=== PATIENT | male | born 1995 | race African-American/Black ===

== ENCOUNTER 2019-01-21 12:20 | Emergency (ER) | payer BC ==
[2019-01-21] MEDS ORDERED: NA CHLORIDE 0.9% 1,000 ML ONE (13:30)
[2019-01-21 13:34] LABS: Absolute Lymphocytes (CBC) 2.1 K/uL (0.7-4.9); Basophils % 0.5 % (0-1.3); Hematocrit 43.9 % (39.6-49.0); Lymphocytes % 17.1 % (15.3-44.8); MPV 11.1 fL (7.6-11.3); RBC Red Blood Cell Count 5.33 M/uL (4.33-5.43)
[2019-01-21] MEDS ORDERED: INSULIN -REGULAR HUMAN 50 UNIT/0.5 ML ML ONE ×2 (13:39→15:39)
[2019-01-21 13:47] LABS: Albumin 4.5 g/dL (3.4-5.0); Bilirubin Direct 0.2 mg/dL (0-0.2); Bilirubin Total 0.8 mg/dL (0.2-1.0); Protein, Total 8.6 g/dL (6.4-8.2)
[2019-01-21 13:55] LABS: Potassium 4.1 mmol/L (3.5-5.1)
--- NOTE | 2019-01-21 16:26 | ER ---
Nurse's Notes [facility] Name: Tom Garcia Age: 23 yrs Sex: Male : 1995 Arrival Date: 01/21/2019 Time: 12:24 Bed 24 Private MD: None, None Diagnosis: Diabetes mellitus due to underlying condition with hyperglycemia Presentation: 01/21 12:25 Presenting complaint: Patient states: my blood sugar is high- 513, i checked it at work; i checked it today;. Transition of care: patient was not received from another setting of care. Onset of symptoms was January 21, 2019. Risk Assessment: Do you want to hurt yourself or someone else? Patient reports no desire to harm self or others. Initial Sepsis Screen: Does the patient meet any 2 criteria? No. Patient's initial sepsis screen is negative. Does the patient have a suspected source of infection? No. Patient's initial sepsis screen is negative. Care prior to arrival: None. 12:25 Method Of Arrival: Ambulatory 12:25 Acuity: ELISA 3 hj Historical: - Allergies: 12:26 No Known Allergies; hj - PMHx: 12:26 Diabetes - NIDDM; - PSHx: 12:26 None; - Immunization history:: Adult Immunizations up to date. - Social history:: Smoking status: Patient/guardian denies using tobacco. - Ebola Screening: : Patient negative for fever greater than or equal to 101.5 degrees Fahrenheit, and additional compatible Ebola Virus Disease symptoms Patient denies exposure to infectious person Patient denies travel to an Ebola-affected area in the 21 days before illness onset No symptoms or risks identified at this time. Screenin:12 Abuse screen: Denies threats or abuse. Denies injuries from another. Nutritional aj screening: No deficits noted. Tuberculosis screening: No symptoms or risk factors identified. Fall Risk None identified. Assessment: 13:12 General: Appears in no apparent distress. comfortable, Behavior is calm, cooperative, aj appropriate for age. Pain: Denies pain. Neuro: Level of Consciousness is awake, alert, obeys commands, Oriented to person, place, time, situation, Appropriate for age Reports blurred vision. Respiratory: Airway is patent Respiratory effort is even, unlabored, Respiratory pattern is regular, symmetrical. Derm: Skin is intact, is healthy with good turgor, Skin is pink, warm \T\ dry. normal. 15:18 Reassessment: Patient appears in no apparent distress at this time. No changes from aj previously documented assessment. Patient and/or family updated on plan of care and expected duration. Pain level reassessed. Patient is alert, oriented x 3, equal unlabored respirations, skin warm/dry/pink. Patient denies pain at this time. Vital Signs: 12:27 BP 177 / 107; Pulse 99; Resp 18; Temp 97.1(TE); Pulse Ox 98% ; Weight 129.27 kg; Height hj 5 ft. 10 in. (177.80 cm); Pain 0/10; 14:14 BP 130 / 85; Pulse 98; Resp 16; Pulse Ox 100% on R/A; aj 15:17 BP 134 / 94; Pulse 96; Resp 16; Pulse Ox 100% on R/A; aj 16:32 BP 133 / 94; Pulse 89; Resp 16; Pulse Ox 100% on R/A; aj 12:27 Body Mass Index 40.89 (129.27 kg, 177.80 cm) ED Course: 12:24 Patient arrived in ED. dp 12:25 None, None is Private Physician. dp 12:26 Triage completed. hj 12:26 Arm band placed on left wrist. hj 12:59 Chrissy Banks, RN is Primary Nurse. aj 13:03 Cata Frey FNP-C is PHCP. snw 13:03 Hernán León MD is Attending Physician. snw 13:10 Inserted saline lock: 20 gauge in right antecubital area, using aseptic technique. jp3 Blood collected. Patient maintains SpO2 saturation greater than 95% on room air. 13:10 Initial lab(s) drawn, by ut, sent to lab. First set of blood cultures drawn by ut. jp3 13:12 Patient has correct armband on for positive identification. aj 13:30 Second set of blood cultures drawn by ut. jp3 13:33 Blood Culture Adult (2) Sent. jp3 16:45 No provider procedures requiring assistance completed. IV discontinued, intact, aj bleeding controlled, No redness/swelling at site. Pressure dressing applied. Administered Medications: 13:16 Drug: NS 0.9% 1000 ml Route: IV; Rate: 250 ml/hr; Site: right antecubital; aj 16:32 Follow up: Response: No adverse reaction; IV Status: Completed infusion; IV Intake: aj 1000ml 13:23 Drug: Insulin Regular Human 5 units {Co-Signature: malu (Chrsisy Banks RN).} Route: IVP; Site: right upper arm; 16:31 Follow up: Response: Blood sugar is lowered aj 13:24 Drug: Insulin Regular Human 5 units {Co-Signature: malu (Chrissy Banks RN).} Route: Sub-Q; Site: right upper arm; 16:31 Follow up: Response: Blood sugar is lowered aj 15:31 Drug: Insulin Regular Human 10 units {Co-Signature: mg2 (David Campos RN).} Route: aj IVP; Site: right antecubital; 16:31 Follow up: Response: Blood sugar is lowered aj 16:31 Drug: metFORMIN 500 mg Route: PO; aj 16:32 Follow up: Response: Medication administered at discharge. aj 16:31 CANCELLED (Physician Discretion): Insulin Regular Human 10 units IVP once aj Point of Care Testing: Blood Glucose: 12:27 Blood Glucose: 449 mg/dL; hj 14:10 Blood Glucose: 364 mg/dL; aj 15:20 Blood Glucose: 334 mg/dL; aj 16:15 Blood Glucose: 299 mg/dL; jp3 Ranges: Intake: 16:32 IV: 1000ml; Total: 1000ml. aj Outcome: 16:22 Discharge ordered by MD. snw 16:45 Discharged to home ambulatory, with family. aj 16:45 Condition: good 16:45 Discharge instructions given to patient, Instructed on discharge instructions, follow up and referral plans. medication usage, Demonstrated understanding of instructions, follow-up care, medications, Prescriptions given X 1. 16:45 Patient left the ED. aj Signatures: Chrissy Banks, RN Cata Ann, LOOM OPERATOR-C LOOM OPERATOR-Csnw Lisa Golden RN RN Dave Santana RN JANE Ash Barker jp3 Sridhar Clifford RN, RN mg2
--- NOTE | 2019-01-21 16:26 | EDPHYS ---
Physician Documentation [facility] Name: Tom Garcia Age: 23 yrs Sex: Male : 1995 Arrival Date: 01/21/2019 Time: 12:24 Bed 24 Private MD: None, None ED Physician Hernán León HPI: 01/21 16:17 This 23 yrs old Black Male presents to ER via Ambulatory with complaints of High Blood snw Sugar. 16:17 The patient or guardian reports polydipsia, polyuria, that was potentially precipitated snw by weight gain. Onset: The symptoms/episode began/occurred gradually. Associated signs and symptoms: Pertinent positives: polydipsia, polyuria, blurry vision at times. Current symptoms: In the emergency department the patient's symptoms have resolved. It is unknown whether or not the patient has had similar symptoms in the past. sees Dr. Garcia. +family hx of NIDDM. Historical: - Allergies: 12:26 No Known Allergies; hj - PMHx: 12:26 Diabetes - NIDDM; hj - PSHx: 12:26 None; hj - Immunization history:: Adult Immunizations up to date. - Social history:: Smoking status: Patient/guardian denies using tobacco. - Ebola Screening: : Patient negative for fever greater than or equal to 101.5 degrees Fahrenheit, and additional compatible Ebola Virus Disease symptoms Patient denies exposure to infectious person Patient denies travel to an Ebola-affected area in the 21 days before illness onset No symptoms or risks identified at this time. ROS: 16:16 Constitutional: Negative for fever, chills, and weight loss, ENT: Negative for injury, snw pain, and discharge, Neck: Negative for injury, pain, and swelling, Cardiovascular: Negative for chest pain, palpitations, and edema, Respiratory: Negative for shortness of breath, cough, wheezing, and pleuritic chest pain, Abdomen/GI: Negative for abdominal pain, nausea, vomiting, diarrhea, and constipation, Back: Negative for injury and pain, : Negative for injury, bleeding, discharge, and swelling, polyuria MS/Extremity: Negative for injury and deformity, Skin: Negative for injury, rash, and discoloration, Neuro: Negative for headache, weakness, numbness, tingling, and seizure. 16:16 Eyes: Positive for blurry vision. Exam: 16:13 Constitutional: This is a well developed, obese patient who is awake, alert, and in no snw acute distress. Head/Face: Normocephalic, atraumatic. Eyes: Pupils equal round and reactive to light, extra-ocular motions intact. Lids and lashes normal. Conjunctiva and sclera are non-icteric and not injected. Cornea within normal limits. Periorbital areas with no swelling, redness, or edema. ENT: Nares patent. No nasal discharge, no septal abnormalities noted. Tympanic membranes are normal and external auditory canals are clear. Oropharynx with no redness, swelling, or masses, exudates, or evidence of obstruction, uvula midline. Mucous membranes moist. Neck: Trachea midline, no thyromegaly or masses palpated, and no cervical lymphadenopathy. Supple, full range of motion without nuchal rigidity, or vertebral point tenderness. No Meningismus. Chest/axilla: Normal chest wall appearance and motion. Nontender with no deformity. No lesions are appreciated. Cardiovascular: Regular rate and rhythm with a normal S1 and S2. No gallops, murmurs, or rubs. Normal PMI, no JVD. No pulse deficits. Respiratory: Lungs have equal breath sounds bilaterally, clear to auscultation and percussion. No rales, rhonchi or wheezes noted. No increased work of breathing, no retractions or nasal flaring. Abdomen/GI: Soft, non-tender, with normal bowel sounds. No distension or tympany. No guarding or rebound. No evidence of tenderness throughout. Back: No spinal tenderness. No costovertebral tenderness. Full range of motion. Skin: Warm, dry with normal turgor. Normal color with no rashes, no lesions, and no evidence of cellulitis. MS/ Extremity: Pulses equal, no cyanosis. Neurovascular intact. Full, normal range of motion. Neuro: Awake and alert, GCS 15, oriented to person, place, time, and situation. Cranial nerves II-XII grossly intact. Motor strength 5/5 in all extremities. Sensory grossly intact. Cerebellar exam normal. Normal gait. Psych: Awake, alert, with orientation to person, place and time. Behavior, mood, and affect are within normal limits. Vital Signs: 12:27 BP 177 / 107; Pulse 99; Resp 18; Temp 97.1(TE); Pulse Ox 98% ; Weight 129.27 kg; Height hj 5 ft. 10 in. (177.80 cm); Pain 0/10; 14:14 BP 130 / 85; Pulse 98; Resp 16; Pulse Ox 100% on R/A; aj 15:17 BP 134 / 94; Pulse 96; Resp 16; Pulse Ox 100% on R/A; aj 16:32 BP 133 / 94; Pulse 89; Resp 16; Pulse Ox 100% on R/A; aj 12:27 Body Mass Index 40.89 (129.27 kg, 177.80 cm) hj MDM: 13:13 Patient medically screened. snw 16:26 Data reviewed: vital signs, nurses notes. Data interpreted: Pulse oximetry: on room air snw is 100 %. Interpretation: normal. Counseling: I had a detailed discussion with the patient and/or guardian regarding: the historical points, exam findings, and any diagnostic results supporting the discharge/admit diagnosis, the presence of at least one elevated blood pressure reading (>120/80) during this emergency department visit, lab results, the need for outpatient follow up, to return to the emergency department if symptoms worsen or persist or if there are any questions or concerns that arise at home. Special discussion: Based on the history and exam findings, there is no indication for further emergent testing or inpatient evaluation. I discussed with the patient/guardian the need to see the primary care provider for further evaluation of the symptoms. 01/21 12:59 Order name: CBC with Diff; Complete Time: 14:02 01/21 12:59 Order name: BMP; Complete Time: 14:43 01/21 13:03 Order name: LFT's; Complete Time: 14:02 01/21 13:03 Order name: Blood Culture Adult (2) snw 01/21 13:06 Order name: Osmolality, Serum; Complete Time: 15:10 01/21 13:06 Order name: Ketone, Serum; Complete Time: 14:02 01/21 16:24 Order name: Glucose, Ancillary Testing; Complete Time: 16:23 EDMS 01/21 16:24 Order name: Glucose, Ancillary Testing; Complete Time: 16:23 EDMS 01/21 16:24 Order name: Glucose, Ancillary Testing; Complete Time: 16:23 EDMS 01/21 12:31 Order name: Finger Stick; Complete Time: 12:31 hj 01/21 12:59 Order name: IV Saline Lock; Complete Time: 13:09 aj 01/21 16:13 Order name: FSBS; Complete Time: 16:27 snw Administered Medications: 13:16 Drug: NS 0.9% 1000 ml Route: IV; Rate: 250 ml/hr; Site: right antecubital; aj 16:32 Follow up: Response: No adverse reaction; IV Status: Completed infusion; IV Intake: aj 1000ml 13:23 Drug: Insulin Regular Human 5 units {Co-Signature: malu (Chrissy Banks RN).} Route: IVP; iw Site: right upper arm; 16:31 Follow up: Response: Blood sugar is lowered aj 13:24 Drug: Insulin Regular Human 5 units {Co-Signature: malu (Chrissy Banks RN).} Route: Sub-Q; iw Site: right upper arm; 16:31 Follow up: Response: Blood sugar is lowered aj 15:31 Drug: Insulin Regular Human 10 units {Co-Signature: mg2 (David Campos RN).} Route: aj IVP; Site: right antecubital; 16:31 Follow up: Response: Blood sugar is lowered aj 16:31 Drug: metFORMIN 500 mg Route: PO; aj 16:32 Follow up: Response: Medication administered at discharge. aj 16:31 CANCELLED (Physician Discretion): Insulin Regular Human 10 units IVP once aj Point of Care Testing: Blood Glucose: 12:27 Blood Glucose: 449 mg/dL; hj 14:10 Blood Glucose: 364 mg/dL; aj 15:20 Blood Glucose: 334 mg/dL; aj 16:15 Blood Glucose: 299 mg/dL; jp3 Ranges: Critical Glucose Levels:Adult <50 mg/dl or >400 mg/dl <40 mg/dl or >180 mg/dl Disposition: 18:23 Co-signature as Attending Physician, Hernán León MD. rn Disposition: 01/21/19 16:22 Discharged to Home. Impression: Diabetes mellitus due to underlying condition with hyperglycemia. - Condition is Stable. - Discharge Instructions: Diabetes and Sick Day Management, Hyperglycemic Hyperosmolar State, Form - Daily Diabetes Record, Diabetic Nephropathy, Diabetic Neuropathy, Blood Glucose Monitoring, Adult, Diet for Metabolic Syndrome. - Prescriptions for Metformin 500 mg Oral Tablet - take 1 tablet by ORAL route once daily for 7 days Then take 1 tablet with morning meals AND evening meals; 21 tablet. - Work release form, Medication Reconciliation Form, Thank You Letter, Antibiotic Education, Prescription Opioid Use form. - Follow up: Private Physician; When: 1 - 2 days; Reason: Recheck today's complaints, Continuance of care, Re-evaluation by your physician. Signatures: Dispatcher [employer] Chrissy Singh RN RN aj Therrien, Shelly, WILDLIFE REFUGE MANAGER-C WILDLIFE REFUGE MANAGER-Csnw Lisa Golden RN RN iw Nieto, Roman, MD MD rn Joaquin, Henry, RN RN Chrissy Campos RN mg2 Corrections: (The following items were deleted from the chart) 16:31 16:24 Insulin Regular Human 10 units IVP once ordered. alondra toribio 16:45 16:22 01/21/2019 16:22 Discharged to Home. Impression: Diabetes mellitus due to aj underlying condition with hyperglycemia. Condition is Stable. Forms are Medication Reconciliation Form, Thank You Letter, Antibiotic Education, Prescription Opioid Use. Follow up: Private Physician; When: 1 - 2 days; Reason: Recheck today's complaints, Continuance of care, Re-evaluation by your physician. alondra
[2019-01-21] MEDS ORDERED: METFORMIN HCL 500 MG TAB ONE (16:45)
== END 2019-01-21 16:45 | disposition home or self-care (01) ==
LOC: ER 12:20
DX: E11.65 Type 2 diabetes mellitus with hyperglycemia (principal)
CPT/HCPCS: 36415; 80048; 80076; 82010; 82962; 83930; 85025; 87040; 96372; 99284; J7030

== ENCOUNTER 2023-04-24 23:48 | Emergency (ER) | payer OTHER ==
--- OUTSIDE RECORDS SUMMARY | 2023-04-24 23:51 | XMS REPORT | Continuity of Care Document ---
:1995 Author Organization [facility] t Address [address] [facility] [address] [place] [address] Care Team Providers Name Role Phone Harjit Galaviz DO Primary Care Physician Mahesh Rios Attending Clinician Unavailable Consuelo Whittaker Attending Clinician Unavailable HARJIT GALAVIZ Attending Clinician Unavailable [id number] Attending Clinician Unavailable Harjit Galaviz DO Attending Clinician Payers Payer Name Policy Type Policy Number Effective Date Expiration Date S charlee [facility] 2 [id number] 2021 20 00:00:00 [employer] C1 [id number] Common Spiri t [facility] Blue Cross C1 [id number] Common Spiri t [facility] Problems Condition Condition Condition Status Onset Resolution Last Treating Co mments Source Name Details Category Date Date Treatment Clinician Date Class 3 Class 3 Disease Active Dorota severe severe 4-19 Seybold obesity obesity 00:00: due to due to 00 excess excess calories calories with with serious serious comorbidit comorbidit y and body y and body mass index mass index (BMI) of (BMI) of 40.0 to 40.0 to 44.9 in 44.9 in adult adult Obesity Obesity Disease Active Dorota due to due to 10-11 Seybold excess excess 00:00: - calories 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 Hypertensi Hypertensi Disease Active K elsey on on 10-11 Seybold 00:00: - 00 Externa l Well adult Well adult Disease Active K elsey exam exam 10-11 Seybold 00:00: - 00 Externa l [id number] Obstructiv Problem Com mon e sleep Spirit apnea - [facility] [id number] Essential Problem Comm on hypertensi Spirit on - [facility] [id number] Body mass Problem Com mon index Spirit (BMI) of - CHI 39.0-39.9 St in [facility] [id number] Type 2 Problem Common diabetes Spirit mellitus - [facility] with [facility] [id number] Body mass Problem Com mon index Spirit (BMI) of - CHI 40.0-44.9 St in [facility] [id number] Leukocytos Problem Co mmon is, Spirit unspecifie - CHI d type [facility] [id number] Type 2 Problem Common diabetes Spirit mellitus - [facility] without [facility] long-term current use of insulin [id number] Hyperchole Problem Com mon sterolemia Spirit [facility] [id number] Morbid Problem Common obesity Spirit - [facility] [id number] CPAP Problem Common (continuou Spirit s positive - CHI airway St pressure) [facility] dependence [facility] [place] [id number] snf Problem Com mon (current) Spirit use of - [facility]I insulin [facility] Allergies, Adverse Reactions, Alerts Allergy Allergy Status Severity Reaction(s) Onset Inactive Treating Comm ents Source Name Type Date Date Clinician Lisinopr Propensi Active Cough Dorota il ty to 01-27 Seybold adverse 00:00: - reaction 00 Externa s l lisinopr lisinopr Active cough Common il il Spirit - [facility] Social History Social Habit Start Date Stop Date Quantity Comments Source History of Common Spirit - Tobacco Use [facility] Sex Assigned At Common Sp josephine - [facility] Tobacco use and 2021-10-11 2021-10-11 Smokeless tobacco Ke lsey Seybold - exposure 00:00:00 00:00:00 non-user External Smoking Status Start Date Stop Date Source Never smoked tobacco Dorota Seyb old - External Medications Ordered Filled Start Stop Current Ordering Indication Dosage Frequency Signature Comments Components Source Medication Medication Date Date Medication? Clinician (SIG) Name Name Semaglutide 2021-06 Yes [id number] .25mg Inject Dorota (0.25 or 1-28 0.25 mg Seybold 0.5 00:00: into the - mg/dose) 2 00 skin once Exte rna mg/1.5 mL a week l SQ Solution Pen-Injecto r Jardiance 2021-06 Yes [id number] TAKE 1 Ke lsey 10 MG oral 1-21 TABLET BY Seyb old Tablet 00:00: MOUTH - 00 DAILY Externa l Metformin 2021-06 Yes [id number] TAKE 1 Ke lsey HCl 1000 MG 1-21 TABLET(100 Se ybold oral Tablet 00:00: 0 MG) BY - 00 MOUTH IN Externa THE l MORNING AND IN THE EVENING WITH MEALS glipiZIDE 5 Yes [id number] 5mg Take 1 Dorota MG oral 8-08 tablet (5 Seybold Tablet 00:00: mg total) - 00 by mouth Externa in the l morning and 1 tablet (5 mg total) in the evening. Take before meals. glipiZIDE 5 Yes [id number] 5mg Take 1 Dorota MG oral 5-26 tablet (5 Seybold Tablet 00:00: mg total) 00 by mouth daily (before a meal) Liraglutide Yes [id number] .6mg Inject 0.6 Dorota (Victoza) 5-26 mg into Seybold 18 MG/3ML 00:00: the skin subcutaneou 00 daily s Solution Pen-injecto r Metformin Yes [id number] 1000mg Take 1 Dorota HCl 1000 MG 5-03 tablet Seybol d oral Tablet 00:00: (1,000 mg 00 total) by mouth in the morning and 1 tablet (1,000 mg total) in the evening. Take with meals. Empaglifloz Yes [id number] 1{each} Take 1 Dorota in 10 MG 5-03 each by Seybold oral Tablet 00:00: mouth 00 daily Liraglutide 2021- No [id number] .6mg Inject 0.6 Dorota (Victoza) 5-03 05-26 mg into Seybol d 18 MG/3ML 00:00: 00:00 the skin subcutaneou 00 :00 daily s Solution Pen-injecto r hydroCHLORO 2021- No 1{tbl} Take 1 K elsey thiazide 25 4-19 04-19 tablet by Se ybold MG oral 16:12: 00:00 mouth Tablet 45 :00 daily Losartan 2021- No 1{tbl} Take 1 Jenelle ey Potassium 4-19 04-19 tablet by Seyb old 25 MG oral 16:12: 00:00 mouth Tablet 45 :00 daily Rosuvastati 2021- No 1{tbl} Take 1 K elsey n Calcium 4-19 04-19 tablet by Seyb old 10 MG oral 16:12: 00:00 mouth Tablet 45 :00 daily Semaglutide 2021- No 1mg Inject 1 K elsey (OZEMPIC, 1 4-19 04-19 mg into Seyb old MG/DOSE, 16:12: 00:00 the skin SC) 45 :00 once a week Rosuvastati Yes [id number] 10mg Take 1 Dorota n Calcium 4-19 tablet (10 Seyb old 10 MG oral 00:00: mg total) Tablet 00 by mouth daily Losartan Yes [id number] 25mg Take 1 Hossein sey Potassium 4-19 tablet (25 Seyb old 25 MG oral 00:00: mg total) Tablet 00 by mouth daily hydroCHLORO Yes [id number] 25mg Take 1 Dorota thiazide 25 4-19 tablet (25 Se ybold MG oral 00:00: mg total) Tablet 00 by mouth daily Rosuvastati Yes [id number] 10mg Take 1 Dorota n Calcium 4-19 tablet (10 Seyb old 10 MG oral 00:00: mg total) - Tablet 00 by mouth Externa daily l Losartan Yes [id number] 25mg Take 1 Hossein sey Potassium 4-19 tablet (25 Seyb old 25 MG oral 00:00: mg total) - Tablet 00 by mouth Externa daily l hydroCHLORO Yes [id number] 25mg Take 1 Dorota thiazide 25 4-19 tablet (25 Se ybold MG oral 00:00: mg total) - Tablet 00 by mouth Externa daily l Empaglifloz Yes [id number] 1{tbl} Take 1 Dorota in-metFORMI 4-19 tablet by Sewilly bold N HCl ER 00:00: mouth (Synjardy 00 daily XR) (with 12.51000 breakfast) MG oral TABLET SR 24 HR OZEMPIC ( Yes [id number] 1mg Inject 1 Dorota mg/dose) 2 4-19 mg into Seybol d mg/1.5 mL 00:00: the skin SQ Solution 00 once a Pen-Injecto week r Rosuvastati Yes [id number] 10mg Take 1 Dorota n Calcium 4-19 tablet (10 Seyb old 10 MG oral 00:00: mg total) Tablet 00 by mouth daily Losartan Yes [id number] 25mg Take 1 Hossein sey Potassium 4-19 tablet (25 Seyb old 25 MG oral 00:00: mg total) Tablet 00 by mouth daily hydroCHLORO Yes [id number] 25mg Take 1 Dorota thiazide 25 4-19 tablet (25 Se ybold MG oral 00:00: mg total) Tablet 00 by mouth daily Synjardy XR 2021- No 1{tbl} Take 1 K elsey .07-17-19 tablet by Seyb old MG oral 00:00: 00:00 mouth TABLET SR 00 :00 daily 24 HR (with breakfast) Synjardy XR Synjardy XR 2021- No 1{table QD Synjardy 12.5.07-13 t_with_ XR MG MG 00:00: 00:00 breakfa 12.5 00 :00 st} MG Synjardy XR Synjardy XR 2021- No 1{table QD Synjardy 12.5.507-13 t_with_ XR MG MG 00:00: 00:00 breakfa 12.5-1000 00 :00 st} MG Ozempic (1 Ozempic (2020- No Ozempic (1 MG/DOSE) 2 MG/DOSE) 2 3-30 07-28 MG/DOSE) 2 MG/1.5ML MG/1.5ML 00:00: 00:00 MG/1.5ML 00 :00 Ozempic Ozempic 2020- No Consuelo 0.5 units Common (0.25 or (0.25 or 4-27 07-16 Millender S pirit 0.5 0.5 00:00: 00:00 - CHI MG/DOSE) MG/DOSE) 00 :00 [facility] Ozempic Ozempic 2018-06- No Conseulo as Commo n (0.25 or (0.25 or 2-26 09-13 Millender directed Spirit 0.5 0.5 00:00: 00:00 - CHI MG/DOSE) MG/DOSE) 00 :00 [facility] Crestor Crestor Yes Consuelo 1 tablet Comm on Millender in evening Spir it [facility] Hydrochloro Hydrochloro Yes Consuelo 1 tablet Common thiazide thiazide Millender in the [facility] morning [facility] Losartan Losartan Yes Consuelo 1 tablet Co mmon Potassium Potassium Millender [facility] Metformin Metformin Yes Consuelo 1 tablet Common HCl HCl Millender with a [facility] meal [facility] Ozempic (1 Ozempic (1 No Ozempic (1 MG/DOSE) 2 MG/DOSE) 2 MG/DOSE) 2 MG/1.5ML MG/1.5ML MG/1.5ML Losartan Losartan No 1{table QD Losartan Potassium Potassium t} Potassium 25 mg 25 mg 25 mg metFORMIN metFORMIN No 1{table BID metFORMIN HCl 500 MG HCl 500 MG t_with_ HCl 500 MG a_meal} Crestor 10 Crestor 10 No Crestor 10 MG MG MG Ozempic (1 Ozempic (1 No Ozempic (1 MG/DOSE) 4 MG/DOSE) 4 MG/DOSE) 4 MG/3ML MG/3ML MG/3ML hydroCHLORO hydroCHLORO No 1{table QD hydroCHLOR thiazide 25 thiazide 25 t_in_th Othiazide MG MG e_morni 25 MG ng} Crestor 10 Crestor 10 No Crestor 10 MG MG MG hydroCHLORO hydroCHLORO No 1{table QD hydroCHLOR thiazide 25 thiazide 25 t_in_th Othiazide MG MG e_morni 25 MG ng} Losartan Losartan No 1{table QD Losartan Potassium Potassium t} Potassium 25 mg 25 mg 25 mg Ozempic (1 Ozempic (1 No Ozempic (1 MG/DOSE) 2 MG/DOSE) 2 MG/DOSE) 2 MG/1.5ML MG/1.5ML MG/1.5ML Ozempic (1 Ozempic (1 No Ozempic (1 MG/DOSE) 4 MG/DOSE) 4 MG/DOSE) 4 MG/3ML MG/3ML MG/3ML metFORMIN metFORMIN No 1{table BID metFORMIN HCl 500 MG HCl 500 MG t_with_ HCl 500 MG a_meal} Crestor 10 Crestor 10 No Crestor 10 MG MG MG hydroCHLORO hydroCHLORO No 1{table QD hydroCHLOR thiazide 25 thiazide 25 t_in_th Othiazide MG MG e_morni 25 MG ng} Losartan Losartan No 1{table QD Losartan Potassium Potassium t} Potassium 25 mg 25 mg 25 mg Ozempic (1 Ozempic (1 No Ozempic (1 MG/DOSE) 2 MG/DOSE) 2 MG/DOSE) 2 MG/1.5ML MG/1.5ML MG/1.5ML Ozempic (1 Ozempic (1 No Ozempic (1 MG/DOSE) 4 MG/DOSE) 4 MG/DOSE) 4 MG/3ML MG/3ML MG/3ML metFORMIN metFORMIN No 1{table BID metFORMIN HCl 500 MG HCl 500 MG t_with_ HCl 500 MG a_meal} metFORMIN metFORMIN No 1{table BID metFORMIN HCl 500 MG HCl 500 MG t_with_ HCl 500 MG a_meal} hydroCHLORO hydroCHLORO No 1{table QD hydroCHLOR thiazide 25 thiazide 25 t_in_th Othiazide MG MG e_morni 25 MG ng} Losartan Losartan No 1{table QD Losartan Potassium Potassium t} Potassium 25 mg 25 mg 25 mg Crestor 10 Crestor 10 No Crestor 10 MG MG MG Losartan Losartan No 1{table QD Losartan Potassium Potassium t} Potassium 25 mg 25 mg 25 mg Ozempic (1 Ozempic (1 No Ozempic (1 MG/DOSE) 2 MG/DOSE) 2 MG/DOSE) 2 MG/1.5ML MG/1.5ML MG/1.5ML Crestor 10 Crestor 10 No Crestor 10 MG MG MG hydroCHLORO hydroCHLORO No 1{table QD hydroCHLOR thiazide 25 thiazide 25 t_in_th Othiazide MG MG e_morni 25 MG ng} metFORMIN metFORMIN No 1{table BID metFORMIN HCl 500 MG HCl 500 MG t_with_ HCl 500 MG a_meal} Crestor 10 Crestor 10 No QD Crestor 10 MG MG MG metFORMIN metFORMIN No 1{table BID metFORMIN HCl 500 MG HCl 500 MG t_with_ HCl 500 MG a_meal} hydroCHLORO hydroCHLORO No 1{table QD hydroCHLOR thiazide 25 thiazide 25 t_in_th Othiazide MG MG e_morni 25 MG ng} Ozempic (1 Ozempic (1 No Ozempic (1 MG/DOSE) 2 MG/DOSE) 2 MG/DOSE) 2 MG/1.5ML MG/1.5ML MG/1.5ML Losartan Losartan No 1{table QD Losartan Potassium Potassium t} Potassium 25 MG 25 MG 25 MG Ozempic (1 Ozempic (1 No Ozempic (1 MG/DOSE) 4 MG/DOSE) 4 MG/DOSE) 4 MG/3ML MG/3ML MG/3ML Ozempic (1 Ozempic (1 No Ozempic (1 MG/DOSE) 2 MG/DOSE) 2 MG/DOSE) 2 MG/1.5ML MG/1.5ML MG/1.5ML Crestor 10 Crestor 10 No Crestor 10 MG MG MG metFORMIN metFORMIN No 1{table BID metFORMIN HCl 500 MG HCl 500 MG t_with_ HCl 500 MG a_meal} Losartan Losartan No 1{table QD Losartan Potassium Potassium t} Potassium 25 mg 25 mg 25 mg hydroCHLORO hydroCHLORO No 1{table QD hydroCHLOR thiazide 25 thiazide 25 t_in_th Othiazide MG MG e_morni 25 MG ng} Vital Signs Vital Name Observation Time Observation Value Comments Source Systolic blood 2022-05-22 14:21:00 118 mm[Hg] Dorota Panchalybold - pressure External Diastolic blood 2022-05-22 14:21:00 82 mm[Hg] Kelse y Seybold - pressure External Heart rate 2022-05-22 14:21:00 114 /min Dorota Miranda eybold - External Body temperature 2022-05-22 14:21:00 35.56 Karin Jenelle ey Seybold - External Respiratory rate 2022-05-22 14:21:00 16 /min Jenelle osman Seybold - External Body height 2022-05-22 14:21:00 177.8 cm Dorota Miranda eybold - External Body weight 2022-05-22 14:21:00 130.636 kg Dorota Miranda eybold - External BMI 2022-05-22 14:21:00 41.32 kg/m2 Dorota Miranda eybold - External Systolic blood 2021-10-11 20:28:00 136 mm[Hg] Dorota Seybold pressure Diastolic blood 2021-10-11 20:28:00 80 mm[Hg] Kelse y Seybold pressure Heart rate 2021-10-11 20:28:00 97 /min Dorota Miranda eybold Body temperature 2021-10-11 20:28:00 36.61 Karin Jenelle ey Seybold Respiratory rate 2021-10-11 20:28:00 16 /min Jenelle osman Seybold Body height 2021-10-11 20:28:00 177.8 cm Dorota Miranda eybold Body weight 2021-10-11 20:28:00 130.182 kg Dorota Miranda eybold BMI 2021-10-11 20:28:00 41.18 kg/m2 Dorota osmanbold height 2021-07-26 09:40:00 69.5 [in_i] [facility] weight 2021-07-26 09:40:00 289.8 [lb_av] Common Spirit [facility] temperature 2021-07-26 09:40:00 97.2 [degF] Common [facility] bmi 2021-07-26 09:40:00 42.18 kg/m2 [facility] oximetry 2021-07-26 09:40:00 98 % [facility] respiratory rate 2021-07-26 09:40:00 16 /min Comm on [facility] blood pressure 2021-07-26 09:40:00 132 mm[Hg] Common [facility] - systolic [facility] blood pressure 2021-07-26 09:40:00 76 mm[Hg] Common [facility] - diastolic [facility] blood pressure 2021-07-13 07:50:00 124 mm[Hg] Common Spirit - systolic [facility] blood pressure 2021-07-13 07:50:00 83 mm[Hg] Common [facility] - diastolic [facility] height 2021-07-13 07:50:00 69.5 [in_i] [facility] weight 2021-07-13 07:50:00 285 [lb_av] [facility] temperature 2021-07-13 07:50:00 98.2 [degF] [facility] bmi 2021-07-13 07:50:00 41.48 kg/m2 [facility] height 2021-02-01 08:00:00 69.5 [in_i] [facility] weight 2021-02-01 08:00:00 290 [lb_av] [facility] temperature 2021-02-01 08:00:00 97.7 [degF] [facility] bmi 2021-02-01 08:00:00 42.21 kg/m2 [facility] blood pressure 2021-02-01 08:00:00 118 mm[Hg] Common [facility] - systolic [facility] blood pressure 2021-02-01 08:00:00 88 mm[Hg] Common [facility] diastolic [facility] Procedures This patient has no known procedures. Encounters Start End Encounter Admission Attending Care Care Encounter Source Date/Time Date/Time Type Type Clinicians Facility Department ID 2021-07-[address] [facility] [id number] Common 14:20:40 Mahesh [id number] [facility] 2021-07-20 Outpatient Rios, STLMLC STLMLC [id number] Common 13:35:59 Mahesh [id number] [facility] 2021-07-20 Outpatient Rios, STLMLC STLMLC [id number] Common 13:32:26 Mahesh [id number] [facility] 2021-07-20 Outpatient Rios, STLMLC STLMLC [id number] Common 13:28:23 Mahesh [id number] [facility] 2021-07-20 Outpatient Rios, STLMLC STLMLC [id number] Common 12:47:44 Mahesh [id number] [facility] 2021-07-20 Outpatient Rios, STLMLC STLMLC [id number] Common 12:45:24 Mahesh [id number] [facility] 2021-07-20 Outpatient Rios, STLMLC STLMLC [id number] Common 12:42:40 Mahesh [id number] [facility] 2021-07-20 Outpatient Rios, STLMLC STLMLC [id number] Common 12:36:48 Mahesh [id number] [facility] 2021-07-20 Outpatient Rios, STLMLC STLMLC [id number] Common 12:26:08 Mahesh [id number] [facility] 2021-07-20 Outpatient Rios, STLMLC STLMLC [id number] Common 12:22:11 Mahesh [id number] [facility] 2021-07-20 Outpatient STLMLC STLMLC [id number] Common 12:21:22 [id number] [facility] 2021-07-20 Outpatient STLMLC STLMLC [id number] Common 12:15:23 [id number] [facility] 2021-07-20 Outpatient STLMLC STLMLC [id number] Common 12:09:52 [id number] [facility] 2021-07-20 Outpatient Millender, STLMLC STLMLC [id number] Common 11:51:45 Consuelo [id number] [facility] 2021-07-20 Outpatient Millender, STLMLC STLMLC [id number] 11:28:45 Consuelo [id number] [facility] 2021-07-20 Outpatient Panfilo, VERONICA [facility] [id number] Common 10:57:24 Consuelo [id number] [facility] 2022-11-28 2022-11-28 Outpatient PREZAS, DOROTA BENSON [id number] Dorota 00:00:00 00:00:00 HARJIT Seybol d 2022-11-22 2022-11-22 Outpatient PREZAS, DOROTA BENSON [id number] Dorota 00:00:00 00:00:00 HARJIT Seybol d 2022-08-18 2022-08-18 Outpatient PREZAS, DOROTA BENSON [id number] Dorota 08:15:00 08:15:00 HARJIT Seybol d 2022-08-04 2022-08-04 Outpatient PREZAS, DOROTA BENSON [id number] Dorota 00:00:00 00:00:00 HARJIT Seybol d 2022-08-04 2022-08-04 Outpatient PREZAS, DOROTA BENSON [id number] Dorota 00:00:00 00:00:00 HARJIT Seybol d 2022-06-05 2022-06-05 Outpatient LAB90 DOROTA BENSON [id number] Dorota 08:45:00 08:45:00 Seybol d 2022-06-05 2022-06-05 Outpatient PREZAS, DOROTA BENSON [id number] Dorota 00:00:00 00:00:00 HARJIT Seybol d 2022-05-31 2022-05-31 Outpatient PREZAS, DOROTA BENSON [id number] Dorota 00:00:00 00:00:00 HARJIT Seybol d 2022-05-22 2022-05-22 Outpatient LAB90 DOROTA BENSON [id number] Dorota 09:10:00 09:10:00 Seybol d 2022-05-22 2022-05-22 Outpatient PREZAS, DOROTA BENSON [id number] Dorota 08:00:00 08:00:00 HARJIT Seybol d 2022-05-04 2022-05-04 Outpatient PREZAS, DOROTA BENSON [id number] Dorota 09:15:00 09:15:00 HARJIT Seybol d 2022-04-20 2022-04-20 Outpatient PREZAS, DOROTA BENSON [id number] Dorota 00:00:00 00:00:00 HARJIT Seybol d 2022-02-13 2022-02-13 Outpatient PREZAS, DOROTA BENSON [id number] Dorota 00:00:00 00:00:00 HARJIT Seybol d 2022-01-30 2022-01-30 Outpatient PREZAS, DOROTA BESNON [id number] Dorota 00:00:00 00:00:00 HARJIT Seybol d 2022-01-27 2022-01-27 Outpatient LAB90 DOROTA BENSON [id number] Dorota 08:30:00 08:30:00 Seybol d 2022-01-27 2022-01-27 Office Tim Galaviz [id number] Dorota 08:00:00 08:15:00 Visit Harjit Saab [id number] Se ybold [id number] 2022-01-23 2022-01-23 Outpatient PREZARuben, DOROTA BENSON [id number] Dorota 00:00:00 00:00:00 HARJIT Seybol d 2021-11-17 2021-11-17 Telemedici REBECCATim Miranda [id number] Dorota 09:00:00 09:00:00 ne HARJIT Saab [id number] Se ybold [id number] 2021-11-17 2021-11-17 Outpatient PREZASDOROTA [id number] Dorota 00:00:00 00:00:00 HARJIT Seybol d 2021-11-16 2021-11-16 Outpatient PREZASDOROTA [id number] Dorota 00:00:00 00:00:00 HARJIT Seybol d 2021-11-04 2021-11-04 Outpatient PREZASDOROTA [id number] Dorota 00:00:00 00:00:00 HARJIT Seybol d 2021-11-02 2021-11-02 Outpatient PREZAS, DOROTA BENSON [id number] Dorota 00:00:00 00:00:00 HARJIT Seybol d 2021-10-27 2021-10-27 Outpatient PREZAS, DOROTA BENSON [id number] Dorota 00:00:00 00:00:00 HARJIT Seybol d 2021-10-25 2021-10-25 Outpatient PREZAS, DOROTA BENSON [id number] Dorota 00:00:00 00:00:00 HARJIT Seybol d 2021-10-13 2021-10-13 Outpatient LAB90 DOROTA BENSON [id number] Dorota 08:15:00 08:15:00 Seybol d 2021-10-12 2021-10-12 Outpatient PREZAS DOROTA BENSON [id number] Dorota 00:00:00 00:00:00 HARJIT Seybol d 2021-10-12 2021-10-12 Outpatient PREZAS, DOROTA BENSON [id number] Dorota 00:00:00 00:00:00 HARJIT Seybol d 2021-10-11 2021-10-11 Office Tim Galaviz [id number] Dorota 15:15:00 15:45:00 Visit Harjit Kaiser [id number] Se etienne [id number] 2021-10-10 2021-10-10 (TEL) STLMLC STLMLC [id number] Co mmon 00:00:00 00:00:00 [facility] 2021-07-26 2021-07-26 OFFICE STLMLC STLMLC [id number] Co mmon 00:00:00 00:00:00 VISIT EST Spir it PT LEVEL 3 - [facility] 2021-07-25 2021-07-25 (TEL) STLMLC STLMLC [id number] Co mmon 00:00:00 00:00:00 [facility] 2021-07-13 2021-07-13 OFFICE STLMLC STLMLC [id number] Co mmon 00:00:00 00:00:00 VISIT [facility] ESTAB PT - CHI LEVEL 4 [facility] 2021-05-27 2021-05-27 (TEL) STLMLC STLMLC [id number] Co mmon 00:00:00 00:00:00 [facility] 2021-02-01 2021-02-01 OFFICE STLMLC STLMLC [id number] Co mmon 00:00:00 00:00:00 VISIT [facility] PT - CHI LEVEL 4 [facility] 2020-12-09 2020-12-09 (TEL) STLMLC STLMLC [id number] Co mmon 00:00:00 00:00:00 [facility] 2020-09-23 2020-09-23 Outpatient STLMLC STLMLC [id number] Common 00:00:00 00:00:00 [facility] 2020-09-21 2020-09-21 Outpatient STLMLC STLMLC [id number] Common 00:00:00 00:00:00 [facility] 2020-07-12 2020-07-12 Outpatient STLMLC STLMLC [id number] Common 00:00:00 00:00:00 [facility] 2019-12-18 2019-12-18 [facility] [id number] Common 09:40:00 09:40:00 [facility] [address] [facility] 2019-10-20 2019-10-20 [facility] [id number] Common 14:22:00 14:22:00 [facility] [address] [facility] 2019-10-20 2019-10-20 [facility] [id number] Common 11:34:00 11:34:00 [facility] [address] [facility] 2019-08-08 2019-08-08 [facility] [id number] Common 14:00:00 14:00:00 [facility] [address] [facility] 2019-07-25 2019-07-25 Out[facility] [id number] Common 08:44:00 08:44:[address] [facility] 2019-04-10 2019-04-10 Outpatient [facility] [id number] Common 09:31:00 09:31:[address] [facility] 2019-04-04 2019-04-04 Out[facility] [id number] Common 10:30:00 10:30:[address] [facility] 2019-03-04 2019-03-04 [facility] [id number] Common 14:15:00 14:15:[address] [facility] 2019-03-04 2019-03-04 [facility] [id number] Common 09:15:00 09:15:00 t [facility] Road Spir it Road [facility] 2019-03-04 2019-03-04 Out[facility] [id number] Common 08:20:00 08:20:[address] [facility] 2019-02-20 2019-02-20 [facility] [id number] Common 13:15:00 13:15:[address] [facility] Results This patient has no known results.
[2023-04-25 00:33] LABS: Absolute Lymphocytes (CBC) 3.1 K/uL (0.7-4.9); Hematocrit 44.9 % (39.6-49.0); Lymphocytes % 30.6 % (15.3-44.8); MCV 83.7 fL (80-100); MPV 10.1 fL (7.6-11.3); Platelets 230 thou/uL (152-406); RBC Red Blood Cell Count 5.36 M/uL (4.33-5.43)
[2023-04-25] MEDS ORDERED: INSULIN REGULAR (HUMAN) 100 UNIT/ML ONE ×2 (00:46→02:00)
[2023-04-25] MEDS ORDERED: NA CHLORIDE 0.9% 1,000 ML ONE ×3 (00:46→03:10)
[2023-04-25 01:07] LABS: Specific Gravity 1.029 (1.005-1.030); Urine Bilirubin NEGATIVE (Negative); Urine Blood Negative (Negative); Urine Clarity Clear (Clear); Urine Color Colorless (Yellow); Urine Glucose 4+ (Over) (Negative); Urine Protein NEGATIVE (Negative); Urine Urobilinogen Normal (Normal); Urine pH 5.5 (5.0-7.0)
[2023-04-25 01:11] LABS: Albumin 3.9 g/dL (3.4-5.0); Bilirubin Total 0.7 mg/dL (0.2-1.0); Protein, Total 7.7 g/dL (6.4-8.2)
[2023-04-25 01:13] LABS: Potassium 3.7 mEq/L (3.5-5.1)
[2023-04-25 01:27] LABS: BETA HYDROXYBUTYRATE 0.14 mmol/L (0.02-0.27)
[2023-04-25] MEDS ORDERED: POTASSIUM 25 MEQ EFFERV TAB ONE (02:05)
--- NOTE | 2023-04-25 03:16 | ER ---
Nurse's Notes [facility] Name: Tom Garcia Age: 27 yrs Sex: Male : 1995 Arrival Date: 04/24/2023 Time: 23:48 Bed 5 Private MD: Diagnosis: Diabetes mellitus due to underlying condition with hyperglycemia Presentation: 04/24 23:53 Chief complaint: Patient states: HIGH BLOOD SUGAR. TYPE 2 DM . TOOK BS AT 11P AND IT jj7 JUST SAID IT WAS HIGH READING ON MACHINE. Coronavirus screen: At this time, the client does not indicate any symptoms associated with coronavirus-19. Ebola Screen: No symptoms or risks identified at this time. Initial Sepsis Screen: Does the patient meet any 2 criteria? No. Patient's initial sepsis screen is negative. Does the patient have a suspected source of infection? No. Patient's initial sepsis screen is negative. Risk Assessment: Do you want to hurt yourself or someone else? Patient reports no desire to harm self or others. Onset of symptoms was April 24, 2023. 23:53 Method Of Arrival: Ambulatory [facility] 23:53 Acuity: ELISA 3 jj7 Triage Assessment: 23:56 General: Appears in no apparent distress. comfortable, Behavior is calm, cooperative, jj7 appropriate for age, anxious. Pain: Denies pain. Historical: - Allergies: 23:56 No Known Allergies; jj7 - PMHx: 23:56 Diabetes - NIDDM; Hypertensive disorder; jj7 - PSHx: 23:56 None; jj7 - Immunization history:: Adult Immunizations up to date. - Social history:: Smoking status: Patient denies any tobacco usage or history of. Patient uses alcohol, but reports only rare drinking. Patient/guardian denies using street drugs. Screenin/01 00:01 [facility] ED Fall Risk Assessment (Adult) History of falling in the last 3 months, jj7 including since admission No falls in past 3 months (0 pts) Confusion or Disorientation No (0 pts) Intoxicated or Sedated No (0 pts) Impaired Gait No (0 pts) Mobility Assist Device Used No (0 pt) Altered Elimination No (0 pt) Score/Fall Risk Level 0 - 2 = Low Risk Oriented to surroundings, Maintained a safe environment. Abuse screen: Denies threats or abuse. Nutritional screening: No deficits noted. Tuberculosis screening: No symptoms or risk factors identified. Assessment: 00:01 Reassessment: SEE TRIAGE ASSESSMENT. [facility] 01:00 Reassessment: Patient appears in no apparent distress at this time. Patient and/or pf1 family updated on plan of care and expected duration. Pain level reassessed. Patient is alert, oriented x 3, equal unlabored respirations, skin warm/dry/pink. Patient states symptoms have improved. 02:02 Reassessment: Patient appears in no apparent distress at this time. Patient and/or pf1 family updated on plan of care and expected duration. Pain level reassessed. Patient is alert, oriented x 3, equal unlabored respirations, skin warm/dry/pink. Patient states symptoms have improved. 03:00 Reassessment: Patient appears in no apparent distress at this time. Patient and/or pf1 family updated on plan of care and expected duration. Pain level reassessed. Patient is alert, oriented x 3, equal unlabored respirations, skin warm/dry/pink. Patient denies pain at this time. Patient states feeling better. Patient states symptoms have improved. 04:02 Reassessment: Patient appears in no apparent distress at this time. Patient and/or pf1 family updated on plan of care and expected duration. Pain level reassessed. Patient is alert, oriented x 3, equal unlabored respirations, skin warm/dry/pink. Patient states feeling better. Patient states symptoms have improved. Vital Signs: 04/24 23:53 BP 173 / 123; Pulse 9; Resp 18; Temp 98.7; Pulse Ox 100% ; Weight 124.74 kg; Height 5 [facility] ft. 10 in. ; Pain 0/10; 04/25 01:00 BP 151 / 103; Pulse 107; Resp 18; Pulse Ox 99% on R/A; Pain 0/10; pf1 02:00 BP 147 / 98; Pulse 103; Resp 17 S; Pulse Ox 99% on R/A; ha1 03:00 BP 150 / 100; Pulse 101; Resp 18 S; Pulse Ox 99% on R/A; ha1 04:01 BP 144 / 82; Pulse 95; Resp 18 S; Pulse Ox 100% on R/A; ha1 04/24 23:53 Body Mass Index 39.46 (124.74 kg, 177.8 cm) [facility] 04/24 23:53 Pain Scale: Adult jj7 04/25 01:00 Pain Scale: Adult pf1 ED Course: 04/24 23:50 Patient arrived in ED. jj6 23:56 Triage completed. jj7 23:56 Arm band placed on right wrist. jj7 23:58 Dequan Kaur PA is PHCP. cp 23:59 Andrew Mata MD is Attending Physician. cp 04/25 00:00 Patient has correct armband on for positive identification. Bed in low position. Call pf1 light in reach. 00:10 Inserted saline lock: 20 gauge in left antecubital area, using aseptic technique. Blood ha1 collected. 00:23 CBC with Diff Sent. ha1 00:23 CMP Sent. ha1 00:24 Lipase Sent. ha1 04:03 No provider procedures requiring assistance completed. IV discontinued, intact, pf1 bleeding controlled, No redness/swelling at site. Pressure dressing applied. 04:04 Provided Education on: follow up education on DM, high blood pressure and keeping a pf1 blood pressure log.. Administered Medications: 00:38 Drug: NS 0.9% IV 1000 ml IV at 1 bolus Per protocol; 1000 mL bolus Route: IV; Rate: 1 ha1 bolus; Site: left antecubital; 01:24 Follow up: Response: No adverse reaction; Marked relief of symptoms pf1 01:30 Follow up: Response: No adverse reaction; Marked relief of symptoms; IV Status: pf1 Completed infusion; IV Intake: 1000ml 00:38 Drug: Insulin Regular Human IVP 10 units IVP once {Co-Signature: pf1 (Tita Catherine RN).} Route: IVP; Site: left antecubital; 01:30 Follow up: Response: No adverse reaction; Marked relief of symptoms; Blood sugar is pf1 lowered 00:51 Not Given (Physician Discretion): insulin regular human10 units Sub-Q once ha1 01:30 Drug: NS 0.9% IV 1000 ml IV at 1 bolus Per protocol; 1000 mL bolus Route: IV; Rate: 1 pf1 bolus; Site: left antecubital; 02:30 Follow up: Response: No adverse reaction; Marked relief of symptoms; IV Status: pf1 Completed infusion; IV Intake: 1000ml 02:00 Drug: Insulin Regular Human Sub-Q 10 units Sub-Q once {Co-Signature: pf1 (layne Catherine RN).} Route: Sub-Q; Site: abdomen; 03:00 Follow up: Response: No adverse reaction; Marked relief of symptoms; Blood sugar is pf1 lowered 02:01 Drug: Potassium PO Effervescent Tablet 50 mEq PO once; dissolve in 4 ounces of water or ha1 juice Route: PO; 02:14 Follow up: Response: No adverse reaction pf1 03:10 Drug: NS 0.9% IV 1000 ml IV at 1 bolus Per protocol; 1000 mL bolus Route: IV; Rate: 1 pf1 bolus; Site: left antecubital; 04:00 Follow up: Response: No adverse reaction; Marked relief of symptoms; IV Status: pf1 Completed infusion; IV Intake: 1000ml Medication: 00:01 VIS not applicable for this client. jj7 Point of Care Testing: Blood Glucose: 04/24 23:56 Blood Glucose: High (>450 mg/dL); jj7 Ranges: Intake: 04/25 01:30 IV: 1000ml; Total: 1000ml. pf1 02:30 IV: 1000ml; Total: 2000ml. pf1 04:00 IV: 1000ml; Total: 3000ml. pf1 Outcome: 03:16 Discharge ordered by MD. cp 04:04 Discharged to home ambulatory, pf1 04:04 Condition: improved 04:04 Discharge instructions given to patient, Instructed on discharge instructions, follow up and referral plans. Demonstrated understanding of instructions, follow-up care, 04:05 Patient left the ED. pf1 Signatures: Dequan Kaur PA PA cp Jeffries, Jennifer jj6 Liliana Apple RN RN ha1 Lorenzo Espinosa RN RN jj7 Tita Catherine RN RN pf1 Tita Catherine RN pf1 Corrections: (The following items were deleted from the chart) 02:29 02:27 BP 147 / 98; Pulse 103bpm; Resp 17bpm; Spontaneous; Pulse Ox 99% RA; ha1 ha1
--- NOTE | 2023-04-25 03:16 | EDPHYS ---
Physician Documentation [facility] Name: Tom Garcia Age: 27 yrs Sex: Male : 1995 Arrival Date: 04/24/2023 Time: 23:48 Bed 5 Private MD: ED Physician Andrew Mata HPI: 04/25 00:10 This 27 yrs old Black Male presents to ER via Ambulatory with complaints of High Blood cp Sugar. 00:10 The patient or guardian reports hyperglycemia, that was potentially precipitated by cp forgetting medications. Onset: The symptoms/episode began/occurred today. Associated signs and symptoms: Pertinent negatives: vomiting, fever, chest pain, abdominal pain. Current symptoms: In the emergency department the patient's symptoms are unchanged from the initial presentation, despite home interventions. took shot of Ozempic medication this evening. Historical: - Allergies: 04/24 23:56 No Known Allergies; jj7 - PMHx: 23:56 Diabetes - NIDDM; Hypertensive disorder; jj7 - PSHx: 23:56 None; jj7 - Immunization history:: Adult Immunizations up to date. - Social history:: Smoking status: Patient denies any tobacco usage or history of. Patient uses alcohol, but reports only rare drinking. Patient/guardian denies using street drugs. ROS: 04/25 00:15 Constitutional: Negative for body aches, chills, fever, cp 00:15 Eyes: Negative for injury, pain, redness, and discharge, cp 00:15 ENT: Negative for drainage from ear(s), ear pain, sore throat, difficulty swallowing, difficulty handling secretions, 00:15 Cardiovascular: Negative for chest pain, edema, 00:15 Respiratory: Negative for cough, shortness of breath, wheezing, 00:15 Abdomen/GI: Negative for abdominal pain, vomiting, diarrhea, constipation, 00:15 : Negative for urinary symptoms, hematuria, 00:15 Skin: Negative for cellulitis, rash, 00:15 Neuro: Negative for altered mental status, dizziness, headache, numbness, weakness, 00:15 All other systems are negative, Exam: 00:20 Constitutional: The patient appears in no acute distress, alert, awake, cp non-diaphoretic, non-toxic, well developed, well nourished, obese, 00:20 Head/Face: Normocephalic, atraumatic. cp 00:20 Eyes: Periorbital structures: appear normal, Conjunctiva: normal, no exudate, no injection, Sclera: no appreciated abnormality, Lids and lashes: appear normal, bilaterally, 00:20 ENT: External ear(s): are unremarkable, Nose: is normal, Mouth: Lips: moist, Oral mucosa: pink and intact, moist, Posterior pharynx: Airway: no evidence of obstruction, patent, swelling, is not appreciated, erythema, is not appreciated, 00:20 Neck: ROM/movement: is normal, is supple, without pain, no range of motions limitations, 00:20 Chest/axilla: Inspection: normal, Palpation: is normal, no crepitus, no tenderness, 00:20 Cardiovascular: Rate: tachycardic, Rhythm: regular, Edema: is not appreciated, JVD: is not appreciated, 00:20 Respiratory: the patient does not display signs of respiratory distress, Respirations: normal, no use of accessory muscles, no retractions, labored breathing, is not present, Breath sounds: are clear throughout, no decreased breath sounds, no stridor, no wheezing, 00:20 Abdomen/GI: Inspection: obese Bowel sounds: active, all quadrants, Palpation: abdomen is soft and non-tender, in all quadrants, 00:20 Back: pain, is absent, ROM is normal, 00:20 Skin: cellulitis, is not appreciated, no rash present. 00:20 Neuro: Orientation: to person, place \T\ time. Mentation: is normal, Cerebellar function: is grossly normal, Motor: moves all fours, strength is normal, Sensation: is normal, 02:51 ECG was reviewed by the Attending Physician. cp Vital Signs: 04/24 23:53 BP 173 / 123; Pulse 9; Resp 18; Temp 98.7; Pulse Ox 100% ; Weight 124.74 kg; Height 5 jj7 ft. 10 in. ; Pain 0/10; 04/25 01:00 BP 151 / 103; Pulse 107; Resp 18; Pulse Ox 99% on R/A; Pain 0/10; pf1 02:00 BP 147 / 98; Pulse 103; Resp 17 S; Pulse Ox 99% on R/A; ha1 03:00 BP 150 / 100; Pulse 101; Resp 18 S; Pulse Ox 99% on R/A; ha1 04:01 BP 144 / 82; Pulse 95; Resp 18 S; Pulse Ox 100% on R/A; ha1 04/24 23:53 Body Mass Index 39.46 (124.74 kg, 177.8 cm) 7 04/24 23:53 Pain Scale: Adult jj7 04/25 01:00 Pain Scale: Adult pf1 MDM: 00:06 Patient medically screened. cp 01:00 Differential diagnosis: Littleton's syndrome, diabetes insipidus, DKA, hyperglycemia, cp hyperthyroidism, thyroid storm. 03:15 Data reviewed: vital signs, nurses notes. cp 03:15 Consideration of Admission/Observation Escalation of care including cp admission/observation considered. I considered the following discharge prescriptions or medication management in the emergency department Medications were administered in the Emergency Department. See MAR. Care significantly affected by the following chronic conditions: Diabetes, Hypertension. Counseling: I had a detailed discussion with the patient and/or guardian regarding the historical points, exam findings, and any diagnostic results supporting the discharge/admit diagnosis, lab results, the need for outpatient follow up, for definitive care, a family practitioner, to return to the emergency department if symptoms worsen or persist or if there are any questions or concerns that arise at home. Response to treatment: the patient's symptoms have markedly improved after treatment, and as a result, I will discharge patient. 04/24 23:59 Order name: CBC with Diff; Complete Time: 00:58 04/25 00:58 Interpretation: Reviewed. 04/24 23:59 Order name: CMP; Complete Time: 01:45 cp 04/25 01:17 Interpretation: Normal except: NA 127; CL 92; GLUC 701; CRE 1.32; GFR 75; ALT 70; GLOB cp 3.8; A/G 1.0. 04/24 23:59 Order name: Lipase; Complete Time: 01:45 cp 04/24 23:59 Order name: Urinalysis w/ reflexes; Complete Time: 01:14 cp 04/25 02:20 Interpretation: Normal except: UGLUC 4+ (Over). 04/25 00:13 Order name: Glucose, Ancillary Testing; Complete Time: 00:22 EDMS 04/25 01:18 Order name: LAB Add On cp 04/25 01:20 Order name: BETA HYDROXYBUTYRATE; Complete Time: 01:45 EDMS 04/25 02:36 Interpretation: Within normal limits. 04/25 01:55 Order name: Glucose, Ancillary Testing; Complete Time: 02:19 EDMS 04/25 02:19 Interpretation: GLUC,ANCIL 453; Reviewed. 04/25 03:07 Order name: Glucose, Ancillary Testing EDIL 04/25 02:35 Order name: EKG; Complete Time: 02:36 cp 04/24 23:59 Order name: Accucheck Blood Glucose; Complete Time: 00:25 cp 04/24 23:59 Order name: IV Saline Lock; Complete Time: 00:23 cp 04/24 23:59 Order name: Labs collected and sent; Complete Time: 00:23 cp 04/25 02:35 Order name: EKG - Nurse/Tech; Complete Time: 02:59 04/25 02:51 Order name: Accucheck Blood Glucose; Complete Time: 03:00 cp EC:51 Rate is 100 beats/min. Rhythm is regular. IN interval is normal. QRS interval is cp prolonged at 102 msec. QT interval is normal. T waves are Inverted in lead aVR. Interpreted by me. Reviewed by me. Administered Medications: 00:38 Drug: NS 0.9% IV 1000 ml IV at 1 bolus Per protocol; 1000 mL bolus Route: IV; Rate: 1 ha1 bolus; Site: left antecubital; 01:24 Follow up: Response: No adverse reaction; Marked relief of symptoms pf1 01:30 Follow up: Response: No adverse reaction; Marked relief of symptoms; IV Status: pf1 Completed infusion; IV Intake: 1000ml 00:38 Drug: Insulin Regular Human IVP 10 units IVP once {Co-Signature: pf1 (Tita Catherine RN).} Route: IVP; Site: left antecubital; 01:30 Follow up: Response: No adverse reaction; Marked relief of symptoms; Blood sugar is pf1 lowered 00:51 Not Given (Physician Discretion): insulin regular human10 units Sub-Q once ha1 01:30 Drug: NS 0.9% IV 1000 ml IV at 1 bolus Per protocol; 1000 mL bolus Route: IV; Rate: 1 pf1 bolus; Site: left antecubital; 02:30 Follow up: Response: No adverse reaction; Marked relief of symptoms; IV Status: pf1 Completed infusion; IV Intake: 1000ml 02:00 Drug: Insulin Regular Human Sub-Q 10 units Sub-Q once {Co-Signature: sumi1 (layne Catherine RN).} Route: Sub-Q; Site: abdomen; 03:00 Follow up: Response: No adverse reaction; Marked relief of symptoms; Blood sugar is pf1 lowered 02:01 Drug: Potassium PO Effervescent Tablet 50 mEq PO once; dissolve in 4 ounces of water or ha1 juice Route: PO; 02:14 Follow up: Response: No adverse reaction pf1 03:10 Drug: NS 0.9% IV 1000 ml IV at 1 bolus Per protocol; 1000 mL bolus Route: IV; Rate: 1 pf1 bolus; Site: left antecubital; 04:00 Follow up: Response: No adverse reaction; Marked relief of symptoms; IV Status: pf1 Completed infusion; IV Intake: 1000ml Point of Care Testing: Blood Glucose: 04/24 23:56 Blood Glucose: High (>450 mg/dL); jj7 Ranges: Critical Glucose Levels:Adult <50 mg/dl or >400 mg/dl <40 mg/dl or >180 mg/dl Disposition: 04/25 03:18 Co-signature as Attending Physician, Andrew Mata MD I agree with the assessment sp4 and plan of care. I reviewed the patient's care provided by the Advanced Practice Provider and agree with the diagnosis and treatment plan. Disposition Summary: 04/25/23 03:16 Discharge Ordered Notes: Location: Home cp Problem: an acute exacerbation cp Symptoms: have improved cp Condition: Stable cp Diagnosis - Diabetes mellitus due to underlying condition with hyperglycemia cp Followup: cp - With: Private Physician - When: 1 - 2 days - Reason: Recheck today's complaints Discharge Instructions: - Discharge Summary Sheet cp - Type 2 Diabetes Mellitus, Diagnosis, Adult cp - Hyperglycemia cp - Daily Diabetes Mellitus Record cp - Blood Glucose Monitoring, Adult cp - Diabetes Mellitus and Nutrition, Adult cp Forms: - Medication Reconciliation Form cp - Thank You Letter cp - Antibiotic Education cp - Prescription Opioid Use cp - Patient Portal Instructions cp - Leadership Thank You Letter cp Signatures: Dispatcher [employer] EDDequan De Luna PA PA cp Liliana Apple RN RN ha1 Johnson, Juwairiyah, RN RN jj7 Tita Catherine RN RN pf1 Andrew Mata MD MD sp4 Tita Catherine RN pf1 Corrections: (The following items were deleted from the chart) 01:17 01:17 Normal except: NA 127; CL 92; GLUC 701; CRE 1.32; GFR 75. cp cp 04:05 01:16 BETA HYDROXYBUTYRATE+C.LAB.BRZ ordered. cp pf1
[2023-04-25 04:15] VITALS: TEMP 98.7
[2023-04-25 04:33] VITALS: BP 144/82; O2SAT 100
--- NOTE | 2023-04-26 09:50 | EKG ---
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
== END 2023-04-25 04:05 | disposition home or self-care (01) ==
LOC: ER 23:48
DX: E11.65 Type 2 diabetes mellitus with hyperglycemia (principal); I10 Essential (primary) hypertension
CPT/HCPCS: 96361; 93005; 85025; 36415; 82947 ×3; 81003; 83690; 80053; 82010; 96372; 96374; 99284; J1815 ×2; J7030 ×3